=== PATIENT | male | born 1975 | race Caucasian/White ===

== ENCOUNTER 2020-01-01 14:50 | Emergency (ER) | payer MEDICAID ==
[~2020-01-01] VITALS: Ht 175.3 cm; Wt 64.0 kg
[2020-01-01] MEDS ORDERED: VISCOUS LIDOCAINE 2% 15 ML UDC PO ONE (15:15)
[2020-01-01] MEDS ORDERED: MAGNESIUM/ALUMINUM HYDROXIDE/SIMETHICONE 30ML UDC PO ONE (15:15)
[2020-01-01] MEDS ORDERED: ASPIRIN 81MG TABLET PO ONE (15:15)
[2020-01-01 16:08] LABS: BASOPHILS % 1.9 % (0.0-2.0); EOSINOPHILS % 6.8 % (0.0-5.0); HEMOGLOBIN. 7.8 g/dL (14.0-18.0); LYMPHOCYTES % 23.5 % (20.0-50.0); MEAN CORPUSCULAR HEMOGLOBIN 32.9 pg (28.0-32.0); MEAN CORPUSCULAR VOLUME 92.6 fL (80.0-94.0); MONOCYTES % 9.3 % (2.0-8.0); NEUTROPHILS % 58.5 % (40.0-76.0); PLATELET 188 x1000/uL (130-400); RED BLOOD CELL COUNT 2.38 mill/uL (4.7-6.1); RED CELL DISTRIBUTION WIDTH 13.3 % (11.6-14.6)
[2020-01-01 16:09] LABS: CHLORIDE 98 mEq/L (98-107)
[2020-01-01] MEDS ORDERED: CLONIDINE 0.2MG TABLET PO ONE (17:15)
[2020-01-01] MEDS ORDERED: CEFTRIAXONE SODIUM 250 MG/VIAL IM ONE (18:45)
[2020-01-01] MEDS ORDERED: KETOROLAC 30MG/ML VIAL IV ONE (18:45)
[2020-01-01] MEDS ORDERED: AZITHROMYCIN 500 MG TABLET PO ONE (18:45)
[2020-01-01 19:34] VITALS: BP 138/85
== END 2020-01-01 19:37 | disposition home or self-care (01) ==
LOC: ER 14:50
DX: N45.1 Epididymitis (principal); K40.90 Unilateral inguinal hernia, without obstruction or gangrene, not specified as recurrent; I10 Essential (primary) hypertension; K21.9 Gastro-esophageal reflux disease without esophagitis
CPT/HCPCS: 36415; 71045; 74176; 76870; 80053; 83690; 83880; 84484; 85025; 93005; 93976; 96372; 96374; 99285; J0696; J1885; Z7610